=== PATIENT | male | born 1990 | race Asian ===

== ENCOUNTER 2023-12-19 03:40 | Inpatient (IN) | payer OTHER ==
[2023-12-19 04:04] VITALS: BMI 17.4
[2023-12-19] MEDS ORDERED: ACETAMINOPHEN 325 MG TABLET (FP) PO PRN (05:39)
[2023-12-19] MEDS ORDERED: MAGNESIUM HYDROX 2400MG/30ML ORAL SUSPENSION 30 ML CUP PO PRN (05:39)
[2023-12-19] MEDS ORDERED: hydrOXYzine PAMOATE 25 MG CAPSULE (FP) PO PRN (05:39)
[2023-12-19] MEDS ORDERED: NALOXONE HCL 0.4 MG/ML VIAL IM PRN (05:39)
[2023-12-19] MEDS ORDERED: guaiFENesin 600 MG TABLET.ER (FP) PO PRN (05:39)
[2023-12-19] MEDS ORDERED: NALOXONE (NARCAN) HCL 4 MG/0.1 ML SPRAY NS PRN (05:39)
[2023-12-19] MEDS ORDERED: BENZOCAINE/MENTHOL (CHLORASEPTIC ) LOZENGE MM PRN (05:39)
[2023-12-19] MEDS ORDERED: LOPERAMIDE HCL 2 MG CAPSULE PO PRN (05:39)
[2023-12-19] MEDS ORDERED: BENZONATATE 200 MG CAPSULE PO PRN (05:39)
[2023-12-19] MEDS ORDERED: POLYETHYLENE GLYCOL (HEALTHYLAX) 3350 17 GM PACKET PO PRN (05:39)
[2023-12-19] MEDS ORDERED: MAG HYDROX/AL HYDROX/SIMETH 30 ML UNIT-DOSE CUP PO PRN (05:39)
[2023-12-19] MEDS: TUBERCULIN PPD 5 TU/0.1ML SYRINGE (IN PATIENT USE ONLY) ID ONE (09:10)
[2023-12-19] MEDS ORDERED: TUBERCULIN PPD 5 TU/0.1ML VIAL ID ONE (09:11)
[2023-12-19] MEDS: PRENATAL VITAMINS W/ FOLIC ACID TABLET (FP) PO SCH (09:12)
[2023-12-19] MEDS ORDERED: PATIENT'S OWN MEDICATION (NON-FORMULARY) (Bupropion Hcl [Wellbutrin Xl] 300 MG Tab.Er.24h) PO SCH (10:30)
[2023-12-19] MEDS: FLUoxetine HCL 20 MG CAPSULE PO SCH (11:29)
[2023-12-19] MEDS: MIRTAZAPINE 15 MG TABLET (FP) PO SCH (21:22)
[2023-12-19] MEDS: MELATONIN 5 MG TABLETS PO SCH (21:23)
[2023-12-19] MEDS: THIAMINE 100 MG TABLET PO SCH (21:23)
[2023-12-20] MEDS: IBUPROFEN 400 MG TABLET (FP) PO PRN (11:12)
[2023-12-20 11:45] LABS: HEMATOCRIT 39.6 % (35.4-49); HEMOGLOBIN 13.4 GM/dL (11.7-16.9); MCH 30.6 pg (25.7-33.7); MCHC 33.8 g/dl (32.0-35.9); MEAN CELL VOLUME 90.3 fl (80-96); MEAN PLT VOLUME 8.2 fl (7.5-11.1); PLATELET COUNT 395 10^3/uL (134-434); RBC 4.38 M/mm3 (4.00-5.60); RDW 13.2 % (11.9-15.9); WHITE BLOOD COUNT 5.5 K/mm3 (4.0-10.0)
[2023-12-20 12:00] LABS: POTASSIUM 4.2 mmol/L (3.5-5.1)
[2023-12-20 12:02] LABS: CALCIUM 9.5 mg/dL (8.5-10.1)
[2023-12-20 12:04] LABS: ALBUMIN 4.1 g/dl (3.4-5.0); BLOOD UREA NITROGEN 15.7 mg/dL (7-18)
[2023-12-20 12:06] LABS: CREATININE 0.9 mg/dL (0.55-1.3)
[2023-12-20 12:07] LABS: BILIRUBIN,TOTAL 0.4 mg/dL (0.2-1); TOT PROT 7.4 g/dl (6.4-8.2)
[2023-12-20 16:59] LABS: URINE APPEARANCE CLOUDY; URINE BILIRUBIN NEGATIVE (NEGATIVE); URINE COLOR YELLOW; URINE GLUCOSE (UA) NEGATIVE (NEGATIVE); URINE KETONE NEGATIVE (NEGATIVE); URINE LEUK ESTERASE NEGATIVE (NEGATIVE); URINE NITRITE NEGATIVE (NEGATIVE); URINE PROTEIN NEGATIVE (NEGATIVE)
[2023-12-22] MEDS: IBUPROFEN 600 MG TABLET (FP) PO PRN (18:35)
[2023-12-23 06:47] VITALS: TEMP 97.6
[2023-12-24 07:11] VITALS: BP 114/72; PULSE 68; RESP 18
== END 2023-12-24 18:49 | disposition home or self-care (01) | DRG 772 ==
LOC: YASAS 03:40 → Y3E 05:59
PROVIDERS: ADMIT Allergy & Immunology; ATTEND Psychiatry & Neurology Pain Medicine
PROC: HZ42ZZZ Group Counseling for Substance Abuse Treatment, Cognitive-Behavioral (ICD-10-PCS; principal; 2023-12-19)
DX: F15.20 Other stimulant dependence, uncomplicated (principal); F12.20 Cannabis dependence, uncomplicated; F41.9 Anxiety disorder, unspecified; F32.A Depression, unspecified; Z87.891 Personal history of nicotine dependence; Z86.19 Personal history of other infectious and parasitic diseases; Z56.0 Unemployment, unspecified; Z59.00 Homelessness unspecified
CPT/HCPCS: 36415; 80053; 80305; 80307; 81003; 85027; 86593; 86780; 93005; 93010